=== PATIENT | female | born 1975 | race Caucasian/White ===

== ENCOUNTER 2018-01-02 19:52 | Inpatient (IN) | payer OTHER ==
--- NOTE | 2018-01-02 20:50 | ED PDOC ---
HPI: Female Pain Time Seen by Provider: 01/02/18 20:33 Chief Complaint (Nursing): Female Genitourinary Chief Complaint (Provider): Vaginal Bleeding History Per: Patient History/Exam Limitations: no limitations Onset/Duration Of Symptoms: Days (x4) Current Symptoms Are (Timing): Still Present Additional Complaint(s): 42 y/o female with no significant past medical history, who presents to the ED complaining of vaginal bleeding x4 days. Patient is 12 weeks . Patient states she had heavy bleeding today with clots. Reports minimal abdominal pain. Denies fever and vomiting. with 1 . PMD: Dr. Gayle Past Medical History Reviewed: Historical Data, Nursing Documentation, Vital Signs Vital Signs: Last Vital Signs Temp 98.2 F 01/02/18 20:00 Pulse 70 01/02/18 20:00 Resp 18 01/02/18 20:00 BP 120/84 01/02/18 20:00 Pulse Ox 100 01/02/18 20:00 - Medical History PMH: No Chronic Diseases Denies: Chronic Kidney Disease - Surgical History Surgical History: No Surg Hx - Family History Family History: States: Unknown Family Hx - Social History Current smoker - smoking cessation education provided: No Alcohol: None Drugs: Denies - Home Medications Home Medications: Ambulatory Orders Medication Instructions Recorded No Known Home Med 01/02/18 - Allergies Allergies/Adverse Reactions: Allergies Allergy/AdvReac Type Severity Reaction Status Date / Time gluten Allergy SWELLING Verified 01/02/18 20:04 Penicillins Allergy SWELLING Verified 01/02/18 20:04 Review of Systems ROS Statement: Except As Marked, All Systems Reviewed And Found Negative Constitutional: Negative for: Fever Gastrointestinal: Positive for: Abdominal Pain. Negative for: Vomiting Genitourinary Female: Positive for: Vaginal Bleeding Physical Exam - Reviewed Nursing Documentation Reviewed: Yes Vital Signs Reviewed: Yes - Physical Exam Appears: Positive for: Non-toxic, No Acute Distress Head Exam: Positive for: ATRAUMATIC, NORMAL INSPECTION, NORMOCEPHALIC Skin: Positive for: Normal Color, Warm, Dry. Negative for: Rash Eye Exam: Positive for: EOMI, Normal appearance, PERRL Neck: Positive for: Normal, Painless ROM, Supple Cardiovascular/Chest: Positive for: Regular Rate, Rhythm. Negative for: Murmur Respiratory: Positive for: Normal Breath Sounds. Negative for: Respiratory Distress Gastrointestinal/Abdominal: Positive for: Tenderness (slight superpubic tenderness) Back: Positive for: Normal Inspection. Negative for: L CVA Tenderness, R CVA Tenderness, Vertebral Tenderness Extremity: Positive for: Normal ROM. Negative for: Pedal Edema, Deformity Neurologic/Psych: Positive for: Alert, Oriented. Negative for: Motor/Sensory Deficits - Laboratory Results Result Diagrams: 01/02/18 21:00 01/02/18 21:00 - ECG O2 Sat by Pulse Oximetry: 100 (RA) Pulse Ox Interpretation: Normal Medical Decision Making Medical Decision Making: Time: 21:07 Initial Impression: r/o threatened Initial Plan: --Beta-HCG --CMP --CBC --Fluid bolus 1,000 mls/hr --Urine C&S --Urinalysis --US OB --Reevaluation 23:07 US FINDINGS: Uterus: Uterus is anteflexed. Accurate measurements are difficult to obtain. Endometrium in the fundus of the uterus measures 13 mm in width. There is a large heterogeneous echogenic solid avascular mass in the cervix. There is minimal fluid at the periphery. Adnexa: Right ovary measures approximately 3 x 1.7 x 2.6 cm. Left ovary measures approximately 3 x 1.2 x 1.8 cm. There is flow in both ovaries on Doppler imaging. Bladder: Bladder is incompletely distended. IMPRESSION: Large solid heterogeneous avascular mass in the cervix, no intrauterine or ectopic gestation identified Findings suggest incomplete / in progress with products of conception in the cervical canal 5404 On re-examination, patient is bleeding heavily, causing a limited exam. Patient appears pale and weak. Ordered IV fluids, T&S Dr. Gayle ([facility] [employer]) will come see patient in ED, will admit patient to service ( INPATIENT OR) Scribe Attestation: Documented by Reed Kathleen, acting as a scribe for Donna Last MD. Provider Scribe Attestation: All medical record entries made by the Scribe were at my direction and personally dictated by me. I have reviewed the chart and agree that the record accurately reflects my personal performance of the history, physical exam, medical decision making, and the department course for this patient. I have also personally directed, reviewed, and agree with the discharge instructions and disposition. Disposition - Patient ED Disposition Is Patient to be Admitted: Yes - Disposition Disposition Time: 23:19 Condition: FAIR - Pt Status Changed To: Hospital Disposition Of: Inpatient (INPATIENT OR) - Admit Certification Admit to Inpatient:: After my assessment, the patient will require hospitalization for at least two midnights. This is because of the severity of symptoms shown, intensity of services needed, and/or the medical risk in this patient being treated as an outpatient.
[2018-01-02 21:41] LABS: BASO # 0.1 K/uL (0.0-0.2); BASO % 0.6 % (0.0-2.0); EOS # 0.3 K/uL (0.0-0.7); EOS % 2.9 % (0.0-4.0); HEMOGLOBIN 13.4 g/dL (12.0-16.0); LYMPH # 1.4 K/uL (1.0-4.3); LYMPH % 14.4 % (20.0-40.0); MEAN CELL VOLUME 91.6 fl (81.0-99.0); MEAN CORPUSCULAR HEMOGLOBIN 30.9 pg (27.0-31.0); MEAN CORPUSCULAR HGB CONC 33.8 g/dL (33.0-37.0); MEAN PLATELET VOLUME 9.9 fl (7.2-11.7); MONO # 0.5 K/uL (0.0-0.8); MONO % 4.9 % (0.0-10.0); NEUT # 7.4 K/uL (1.8-7.0); NEUT % 77.2 % (50.0-75.0); RBC 4.34 Mil/uL (3.80-5.20); WHITE BLOOD COUNT 9.6 K/uL (4.8-10.8)
[2018-01-02] MEDS ORDERED: Sodium Chloride 0.9% 1,000 ML IV STA ×2 (21:45→23:13)
[2018-01-02 21:49] LABS: ALB/GLOB RATIO 1.1 (1.0-2.1); ALBUMIN 4.2 g/dL (3.5-5.0); ALT/SGPT 29 U/L (9-52); AST/SGOT 27 U/L (14-36); BLOOD UREA NITROGEN 13 mg/dl (7-17); CALCIUM 9.1 mg/dL (8.4-10.2); GFR AFRICAN-AMERICAN > 60; GFR NON-AFRICAN AMERICAN > 60
[2018-01-02 22:29] LABS: URINE BACTERIA OCC (<OCC); URINE BILIRUBIN NEGATIVE (NEGATIVE); URINE BLOOD LARGE (NEGATIVE); URINE CLARITY TURBID (Clear); URINE GLUCOSE (UA) 150 mg/dL (Normal); URINE PROTEIN >=500 mg/dL (NEGATIVE); URINE UROBILINOGEN 0.2-1.0 mg/dL (0.2-1.0); WBC CLUMPS MOD /hpf
[2018-01-02] MEDS ORDERED: Morphine 4 MG/ML VIAL IV ONE (22:29)
[2018-01-02 22:30] LABS: URINE COLOR BLOODY (YELLOW); URINE LEUKOCYTE ESTERASE LARGE Leu/uL (Negative)
--- NOTE | 2018-01-02 23:07 | US ---
EXAM: US Uterus, Limited EXAM DATE/TIME: 01/02/2018 9:08 PM CLINICAL HISTORY: 42 years old, female; Pain and signs and symptoms; Lmp or gestational age (in weeks): 10/04/17; Antepartum complications; Hemorrhage; Other: Bleeding; Gestational age or lmp: 1222/17 TECHNIQUE: Real-time ultrasound of the maternal uterus (limited) with image documentation. COMPARISON: There are no prior studies for comparison. FINDINGS: Uterus: Uterus is anteflexed. Accurate measurements are difficult to obtain. Endometrium in the fundus of the uterus measures 13 mm in width. There is a large heterogeneous echogenic solid avascular mass in the cervix. There is minimal fluid at the periphery. Adnexa: Right ovary measures approximately 3 x 1.7 x 2.6 cm. Left ovary measures approximately 3 x 1.2 x 1.8 cm. There is flow in both ovaries on Doppler imaging. Bladder: Bladder is incompletely distended. IMPRESSION: Large solid heterogeneous avascular mass in the cervix, no intrauterine or ectopic gestation identified Findings suggest incomplete / in progress with products of conception in the cervical canal
[2018-01-02 23:49] LABS: PARTIAL THROMBOPLASTIN TIME 31.1 Seconds (25.6-37.1); PROTHROMBIN TIME 11.2 Seconds (9.8-13.1)
[2018-01-03] MEDS ORDERED: Clindamycin 600mg/50ml NS 600 MG/50 ML BAG IVPB ONE (00:20)
[2018-01-03] MEDS ORDERED: BSS 15 ML 15 ML IR ONE ×2 (00:23)
[2018-01-03] MEDS ORDERED: Lactated Ringer's 1,000 ML IV SCH (00:30)
[2018-01-03] MEDS ORDERED: Propofol 10 mg/ml Inj (20 ML) ONE (00:32)
[2018-01-03] MEDS ORDERED: Midazolam 2 MG/2 ML VIAL ONE (00:32)
[2018-01-03] MEDS ORDERED: Lactated Ringer's 1,000 ML IV ONE (00:35)
[2018-01-03 02:54] VITALS: RESP 18
[2018-01-03 06:44] LABS: HEMOGLOBIN 7.5 g/dL (12.0-16.0); MEAN CELL VOLUME 91.2 fl (81.0-99.0); MEAN CORPUSCULAR HEMOGLOBIN 31.2 pg (27.0-31.0); MEAN CORPUSCULAR HGB CONC 34.2 g/dL (33.0-37.0); RBC 2.4 Mil/uL (3.80-5.20); RED CELL DISTRIBUTION WIDTH 12.5 % (11.5-14.5); WHITE BLOOD COUNT 5.8 K/uL (4.8-10.8)
[2018-01-03] MEDS: Lactated Ringer's 1,000 ML IV SCH ×2 (08:12→11:04)
--- NOTE | 2018-01-03 10:09 | CP.PCM.CON ---
History of Present Illness - History of Present Illness History of Present Illness: This is a 42 yrs old female who came the emergency room with vaginal bleeding. She was 12 weeks but started to have bleeding the day before and was admitted. She had a D&C and her hgb dropped from 13.2 to 7.5gms, She has stopped bleeding now, and now refuses transfusions, I was consulted to use other method to correct her anemia, M No previous h/o anemia. Past Patient History - Past Medical History & Family History Past Medical History?: No - Past Social History Smoking Status: Never Smoked - CARDIAC Hx Cardiac Disorders: No - PULMONARY Hx Respiratory Disorders: No - NEUROLOGICAL Hx Neurological Disorder: No - HEENT Hx HEENT Problems: No - RENAL Hx Chronic Kidney Disease: No - PSYCHIATRIC Hx Psychophysiologic Disorder: No - SURGICAL HISTORY Hx Surgeries: No Meds Allergies/Adverse Reactions: Allergies Allergy/AdvReac Type Severity Reaction Status Date / Time gluten Allergy SWELLING Verified 01/02/18 20:04 Penicillins Allergy SWELLING Verified 01/02/18 20:04 - Medications Medications: Current Medications Lactated Ringer's (Lactated Ringer's) 1,000 mls @ 125 mls/hr IV .Q8H RAO Last Admin: 01/03/18 08:12 Dose: 125 mls/hr Ibuprofen (Motrin Tab) 600 mg PO Q6 PRN PRN Reason: Pain, moderate (4-7) Physical Exam - Additional Findings Additional findings: Physical exam; alert, well orientrd in no acute distress. Neck; Supple, no adenopathy Chest: clear, no rales jose miguel rhonchi Heart; rRSR,no murmur Abd; Soft, no mass,no h/s megaly Results - Vital Signs Recent Vital Signs: Last Vital Signs Temp 98.4 F 01/03/18 07:46 Pulse 72 01/03/18 07:46 Resp 18 01/03/18 07:46 BP 90/56 L 01/03/18 07:46 Pulse Ox 98 01/03/18 07:46 - Labs Result Diagrams: 01/03/18 05:25 01/02/18 21:00 Labs: Laboratory Results - last 24 hr 01/02/18 01/02/18 01/02/18 21:00 21:00 21:48 WBC 9.6 RBC 4.34 Hgb 13.4 Hct 39.8 MCV 91.6 MCH 30.9 MCHC 33.8 RDW 13.0 Plt Count 220 MPV 9.9 Neut % (Auto) 77.2 H Lymph % (Auto) 14.4 L [place] % (Auto) 4.9 Eos % (Auto) 2.9 Baso % (Auto) 0.6 Neut # (Auto) 7.4 H Lymph # (Auto) 1.4 [place] # (Auto) 0.5 Eos # (Auto) 0.3 Baso # (Auto) 0.1 PT INR APTT Sodium 141 Potassium 4.0 Chloride 103 Carbon Dioxide 24 Anion Gap 18 BUN 13 Creatinine 0.5 L Est GFR ( Amer) > 60 Est GFR (Non-Af Amer) > 60 POC Glucose (mg/dL) Random Glucose 87 Calcium 9.1 Total Bilirubin 0.4 AST 27 ALT 29 Alkaline Phosphatase 45 Total Protein 7.9 Albumin 4.2 Globulin 3.7 Albumin/Globulin Ratio 1.1 Beta HCG, Quant 2169.70 Urine Color Bloody Urine Clarity Turbid Urine pH 7.0 Ur Specific [place] 1.037 H Urine Protein >=500 Urine Glucose (UA) 150 Urine Ketones Negative Urine Blood Large Urine Nitrate Negative Urine Bilirubin Negative Urine Urobilinogen 0.2-1.0 Ur Leukocyte Esterase Large Urine RBC (Auto) 555 H Urine WBC Clumps (Auto) Mod H Urine Microscopic WBC 509 H Urine Bacteria Occ H Blood Type Antibody Screen BBK History Checked 01/02/18 01/02/18 01/02/18 23:11 23:16 23:22 WBC RBC Hgb Hct MCV MCH MCHC RDW Plt Count MPV Neut % (Auto) Lymph % (Auto) [place] % (Auto) Eos % (Auto) Baso % (Auto) Neut # (Auto) Lymph # (Auto) [place] # (Auto) Eos # (Auto) Baso # (Auto) PT 11.2 INR 1.0 APTT 31.1 Sodium Potassium Chloride Carbon Dioxide Anion Gap BUN Creatinine Est GFR ( Amer) Est GFR (Non-Af Amer) POC Glucose (mg/dL) 117 H Random Glucose Calcium Total Bilirubin AST ALT Alkaline Phosphatase Total Protein Albumin Globulin Albumin/Globulin Ratio Beta HCG, Quant Urine Color Urine Clarity Urine pH Ur Specific [place] Urine Protein Urine Glucose (UA) Urine Ketones Urine Blood Urine Nitrate Urine Bilirubin Urine Urobilinogen Ur Leukocyte Esterase Urine RBC (Auto) Urine WBC Clumps (Auto) Urine Microscopic WBC Urine Bacteria Blood Type O POSITIVE Antibody Screen Negative BBK History Checked No verified bt 01/03/18 05:25 WBC 5.8 RBC 2.40 L Hgb 7.5 L D Hct 21.9 L MCV 91.2 MCH 31.2 H MCHC 34.2 RDW 12.5 Plt Count 145 MPV Neut % (Auto) Lymph % (Auto) [place] % (Auto) Eos % (Auto) Baso % (Auto) Neut # (Auto) Lymph # (Auto) [place] # (Auto) Eos # (Auto) Baso # (Auto) PT INR APTT Sodium Potassium Chloride Carbon Dioxide Anion Gap BUN Creatinine Est GFR ( Amer) Est GFR (Non-Af Amer) POC Glucose (mg/dL) Random Glucose Calcium Total Bilirubin AST ALT Alkaline Phosphatase Total Protein Albumin Globulin Albumin/Globulin Ratio Beta HCG, Quant Urine Color Urine Clarity Urine pH Ur Specific [place] Urine Protein Urine Glucose (UA) Urine Ketones Urine Blood Urine Nitrate Urine Bilirubin Urine Urobilinogen Ur Leukocyte Esterase Urine RBC (Auto) Urine WBC Clumps (Auto) Urine Microscopic WBC Urine Bacteria Blood Type Antibody Screen BBK History Checked Assessment & Plan - Assessment and Plan (Free Text) Assessment: Impression :Anemia Secondary to miscarriage and D&C. Plan: Plan; Since pt refuses transfusion, will give her venofer 200mg iv today. She can be dischargerd with po iron later today.
[2018-01-03 14:49] VITALS: BP 94/61; PULSE 72; TEMP 98; O2SAT 100
--- NOTE | 2018-01-03 14:54 | CP.PCM.PN ---
Subjective - Date & Time of Evaluation Date of Evaluation: 01/03/18 Time of Evaluation: 14:52 - Subjective Subjective: Feels better less dizziness walked ok and tolerating diet well. voided well several times Denies pain or heavy bleeding No N/V Objective - Vital Signs/Intake and Output Vital Signs (last 24 hours): Temp Pulse Resp BP Pulse Ox 98 F 72 18 94/61 L 100 01/03/18 14:49 01/03/18 14:49 01/03/18 14:49 01/03/18 14:49 01/03/18 14:49 Intake and Output: 01/03/18 01/03/18 06:59 18:59 Intake Total 350 Balance 350 - Medications Medications: Current Medications Ferrous Sulfate (Feosol) 325 mg PO TID [facility] Last Admin: 01/03/18 12:25 Dose: 325 mg Lactated Ringer's (Lactated Ringer's) 1,000 mls @ 125 mls/hr IV .Q8H [facility] Last Admin: 01/03/18 11:04 Dose: Not Given Iron Sucrose 200 mg/ Sodium (Chloride) 110 mls @ 110 mls/hr IVPB DAILY [facility] Last Admin: 01/03/18 12:25 Dose: 110 mls/hr Ibuprofen (Motrin Tab) 600 mg PO Q6 PRN PRN Reason: Pain, moderate (4-7) - Labs Labs: 01/03/18 05:25 01/02/18 21:00 PT 11.2 Seconds (9.8-13.1) 01/02/18 23:22 INR 1.0 (0.9-1.2) 01/02/18 23:22 APTT 31.1 Seconds (25.6-37.1) 01/02/18 23:22 - Constitutional Appears: No Acute Distress - Head Exam Head Exam: ATRAUMATIC - Neck Exam Neck Exam: Full ROM - Respiratory Exam Respiratory Exam: NORMAL BREATHING PATTERN - GI/Abdominal Exam GI & Abdominal Exam: Soft, Normal Bowel Sounds Additional comments: depressible NT - Extremities Exam Extremities Exam: Full ROM Additional comments: no edema or calf tendernes - Neurological Exam Neurological Exam: Alert, Awake, Oriented x3 - Skin Skin Exam: Normal Color, Warm Assessment and Plan - Assessment and Plan (Free Text) Assessment: s/p D/C for incomplete and anemia from blood lost Refussed transfusion s/p iron infusion Plan: Seen early am and offered blood transfusion but declined Director Behavioral [facility] consult given and appreciated and iron infusion given and now improved D/C home on bed rest with rx for po iron and follow up office 1 wk
--- NOTE | 2018-01-03 15:07 | CP.SDSHP ---
Same Day Surgery H & P - Allergies Allergies: Allergies gluten Allergy (Verified 01/02/18 20:04) SWELLING Penicillins Allergy (Verified 01/02/18 20:04) SWELLING - Physical Exam Vital Signs: Vital Signs 01/03/18 01/03/18 01/03/18 07:46 10:00 14:49 Temperature 98.4 F 98.4 F 98 F Pulse Rate 72 84 72 Respiratory 18 18 18 Rate Blood Pressure 90/56 L 89/55 L 94/61 L O2 Sat by Pulse 98 97 100 Oximetry Short Stay Discharge - Short Stay Discharge Admitting Diagnosis/Reason for Visit: FOR D AND C INCOMPLETE MISCARRIAGE Medications: Ferrous Sulfate [Feosol] 325 mg PO BID 30 Days #60 tab Referrals: River Gayle MD [Staff Provider] - Vince Cortes MD [Staff Provider] - Follow-up: 1 wk in office Instructions: Miscarriage (DC), Ferrous Sulfate, Dilation and Curettage (D and C) Additional Instructions (Diet, Activity): pelvic and bed rst
--- NOTE | 2018-01-05 08:37 | OP ---
PROCEDURE DATE: 01/02/2018 PREOPERATIVE DIAGNOSES: Incomplete and heavy vaginal bleeding. POSTOPERATIVE DIAGNOSES: Incomplete and heavy vaginal bleeding. PROCEDURE PERFORMED: Evacuation and curettage. SURGEON: River Gayle MD TYPE OF ANESTHESIA: General. ANESTHESIA ADMINISTERED BY: Radha Tracy MD ESTIMATED BLOOD LOSS: 100 mL. DRAINS USED: None. REPLACEMENTS USED: None. FINDINGS: 1. Cervix appear open about 1 cm dilated thick and bleeding per os with some minor products of conception at os. 2. Uterus about 8-10 weeks' size appears slightly retroverted, mobile, and smooth. 3. No adnexal masses to palpation bilaterally. 4. Large amount of tissue removed from the endometrial cavity without any complications. 5. Suction curettage performed using #10 curved cannula without any complications. DESCRIPTION OF PROCEDURE: The patient was taken to the operating room and placed in the operating table in a supine position. Following induction of general endotracheal anesthesia, the patient was then replaced in the dorsal lithotomy position. Following this, we then proceeded to place a sterile catheter into the bladder after draping and prepping the genital areas in the usual manner. Straight catheter resulted in evacuation of clear fluid from the bladder. The patient was then examined under anesthesia with some of the above findings. Heavy weighted speculum was then placed in the posterior wall of the vagina exposing the cervix. The anterior lip of the cervix was then grasped using a ring forceps and retracted anteriorly superiorly. Using ovarian forceps, large amount of tissue was then evacuated from the endometrial cavity. Following this, we then proceeded to perform suction curettage using a #10 curve cannula, moderate amount of tissue obtained and following this, the uterus massaged and contracted well. Methergine had been given due to heavy bleeding. Prior and following this, the endometrial cavity was then ____curette using sharp curettage, minimal amount of tissue obtained. Again the uterus massaged and contracted well. At this time, no heavy bleeding noted. The patient tolerated the procedure well. There were no complications. She was transferred to the recovery room in satisfactory condition. River Gayle MD
== END 2018-01-03 18:00 | disposition home or self-care (01) | DRG 770 ==
LOC: H.ER 19:52 → H.ERHOLD 23:19 → H.MEDSURG1 01-03 02:37
PROVIDERS: ADMIT Specialist; ATTEND Specialist
PROC: 10D17ZZ Extraction of Products of Conception, Retained, Via Natural or Artificial Opening (ICD-10-PCS; principal; 2018-01-02)
DX: O03.4 Incomplete spontaneous abortion without complication (principal); D50.0 Iron deficiency anemia secondary to blood loss (chronic); Z88.0 Allergy status to penicillin; Z91.018 Allergy to other foods; Z53.20 Procedure and treatment not carried out because of patient's decision for unspecified reasons